=== PATIENT | female | born 1985 | race Caucasian/White ===

== ENCOUNTER 2020-12-24 00:21 | Day surgery (SDC) | payer OTHER, SELFPAY ==
[2020-12-16 12:45] VITALS: BMI 25.6
--- NOTE | 2020-12-23 14:50 | P.PNAN_ITS ---
Anes - Initial Pre Proc Eval Procedure: Operation Date: 12/24/20 13:30 Proposed Procedures p Bilateral Breast Augmentation Mammoplasty - Larry Loja MD Date/Time: 12/23/20 14:50 Surgeon: Larry Loja MD Pre Op Diagnosis: micromastia Patient Data Age: 35 Gender: F Height: 1.57 m Weight: 63.5 kg Allergies Allergy/AdvReac Type Severity Reaction Status Date / Time povidone-iodine Allergy Severe Rash Verified 12/25/20 10:42 [From Betadine] Home Medications Medication Instructions Recorded Confirmed Type aripiprazole 5 mg tablet 5 mg PO DAILY 11/20/20 12/24/20 History vortioxetine 5 mg tablet 20 mg PO DAILY 11/20/20 12/24/20 History zolpidem 5 mg tablet 5 mg PO QHS PRN 11/20/20 12/24/20 History Probiotic with Prebiotic 1 tablet PO DAILY 12/16/20 12/24/20 History Ubrelvy 50 mg PO ONCE PRN 12/16/20 12/24/20 History vitamin D79-[id number] acid 1 tablet PO DAILY 12/16/20 12/24/20 History docusate sodium 100 mg capsule 100 mg PO DAILY #14 cap 12/18/20 12/24/20 Rx ondansetron HCl 4 mg tablet 4 mg PO Q8H #21 tablet 12/18/20 12/24/20 Rx carisoprodol 350 mg tablet 350 mg PO TID PRN #21 tablet 12/19/20 12/24/20 Rx hydrocodone 5 mg-acetaminophen 325 1 tablet PO Q6H PRN #15 tablet 12/19/20 12/24/20 Rx mg tablet Patient hx anesthesia problems: none Family hx anesthesia problems: none Results Review: All pre-operative results and documents have been reviewed as part of the pre-operative evaluation. [facility] Past Medical History Medical History Anxiety Depression Migraine PTSD (post-traumatic stress disorder) Surgical History Surgical History History of appendectomy History of cholecystectomy Social History Social History Smoking status: Never smoker Tobacco type: cigarettes Alcohol intake: never Substance use: never Substance use type: does not use Additional living arrangements comments: WITH CHILDREN Spiritual care concerns: No Anes - Eval Final PreProcedure Day of Procedure 12/23/20 14:50 Patient weight: overweight Heart: regular rate and rhythm Lungs: clear to auscultation and normal air movement Airway: Mallampati scale class II Neurological: alert and oriented Last oral intake: >/= 8 hours ASA classification: II Emergent: no Anesthetic plan: proceed Anesthesia type and monitoring: general LMA and standard monitoring Results Review: All pre-operative results and documents have been reviewed as part of the pre-operative evaluation. Informed Consent: The patient's anesthetic plan and its attendant risks and benefits were discussed with the patient/family/POA. Questions were solicited and answers provided to the satisfaction of the patient/family/POA.
[2020-12-24] VITALS (9 sets, daily range): BP systolic 112–139; BP diastolic 68–83; PULSE 66–113; RESP 12–20; TEMP 37–37.1; O2SAT 96–100
[2020-12-24] MEDS: LACTATED RINGERS 1,000 ML 30 ML IV CONT ×2 (12:04→14:20)
--- NOTE | 2020-12-24 12:26 | WPDANESEPPF ---
Anes - Initial Pre Proc Eval Procedure: Operation Date: 12/24/20 13:30 Proposed Procedures p Bilateral Breast Augmentation Mammoplasty - Larry Loja MD Date/Time: 12/24/20 12:26 Surgeon: Larry Loja MD Pre Op Diagnosis: micromastia Patient Data Age: 35 Gender: F Height: 1.57 m Weight: 66.45 kg Last Vital Signs Temp 37.1 C 12/24/20 12:16 Pulse 66 12/24/20 12:16 Resp 16 12/24/20 12:16 BP 112/68 12/24/20 12:16 Pulse Ox 100 12/24/20 12:16 Allergies Allergy/AdvReac Type Severity Reaction Status Date / Time povidone-iodine Allergy Severe Rash Verified 12/24/20 12:12 [From Betadine] Home Medications Medication Instructions Recorded Confirmed Type aripiprazole 5 mg tablet 5 mg PO DAILY 11/20/20 12/24/20 History vortioxetine 5 mg tablet 20 mg PO DAILY 11/20/20 12/24/20 History zolpidem 5 mg tablet 5 mg PO QHS PRN 11/20/20 12/24/20 History Probiotic with Prebiotic 1 tablet PO DAILY 12/16/20 12/24/20 History ubrogepant [Ubrelvy] 50 mg PO ONCE PRN 12/16/20 12/24/20 History vitamin U76-[id number] acid 1 tablet PO DAILY 12/16/20 12/24/20 History docusate sodium 100 mg capsule 100 mg PO DAILY #14 cap 12/18/20 12/24/20 Rx ondansetron HCl 4 mg tablet 4 mg PO Q8H #21 tablet 12/18/20 12/24/20 Rx carisoprodol 350 mg tablet 350 mg PO TID PRN #21 tablet 12/19/20 12/24/20 Rx hydrocodone 5 mg-acetaminophen 325 1 tablet PO Q6H PRN #15 tablet 12/19/20 12/24/20 Rx mg tablet Laboratory Tests 12/24/20 11:47 Cotinine Pending Patient hx anesthesia problems: none Family hx anesthesia problems: none Results Review: All pre-operative results and documents have been reviewed as part of the pre-operative evaluation. [facility] Past Medical History Medical History Anxiety Depression Migraine PTSD (post-traumatic stress disorder) Surgical History Surgical History History of appendectomy History of cholecystectomy Social History Social History Smoking status: Never smoker Tobacco type: cigarettes Alcohol intake: never Substance use: never Substance use type: does not use Living arrangements: with family Additional living arrangements comments: WITH CHILDREN Spiritual care concerns: No Anes - Eval Final PreProcedure Day of Procedure 12/24/20 12:26 Patient weight: overweight Heart: regular rate and rhythm Lungs: clear to auscultation Airway: Mallampati scale class II Neurological: alert and oriented Last oral intake: >/= 8 hours ASA classification: III Emergent: no Anesthetic plan: proceed Anesthesia type and monitoring: general LMA and standard monitoring Results Review: All pre-operative results and documents have been reviewed as part of the pre-operative evaluation. Informed Consent: The patient's anesthetic plan and its attendant risks and benefits were discussed with the patient/family/POA. Questions were solicited and answers provided to the satisfaction of the patient/family/POA.
--- NOTE | 2020-12-24 12:30 | WPDHPUPDATE1 ---
History and Physical Update Update Date/Time: 12/24/20 12:30 History and Physical has been reviewed, including an updated exam of the patient. There are NO changes in the patient's condition. Risks, benefits, and alternatives have been discussed and questions answered. Patient agrees to proceed with procedure.
[2020-12-24] MEDS: SCOPOLAMINE 1.5 MG PATCH TRANSDERM (12:48)
--- NOTE | 2020-12-24 12:49 | P.OP_ITS ---
Procedure Note - Detailed Date of Procedure 12/24/20 Pre-op Diagnosis micromastia Post-op Diagnosis same Procedure Performed Bilateral Augmentation Mammaplasty Surgeon Larry Loja MD Anesthesia general Findings Bilateral Dual Plane Augmentation Mammaplasty Shiva Fields SoftTouch 405cc Right - REF#405 SN [id number] Left - REF#405 SN [id number] Description of Procedure She is here today for bilateral breast augmentation. Previously and again today the risks, benefits, alternatives were discussed in extensive detail. I wanted her to be very realistic about the risks involved as well as expectations. We discussed aftercare and what to monitor for. Made sure answered all of her questions to her satisfaction today and consent was obtained. Marked in the preoperative holding area with their verification. The patient was taken to the operating room placed supine on the operating table. Anesthesia was provided by anesthesiology. A surgical time-out was taken. We cleansed the skin and 1% lidocaine and 0.25% Marcaine with epinephrine was used anesthetize as a field block. She was prepped and draped in a standard sterile fashion. Tegaderm nipple Interiano were placed. A 15 blade used to make an incision along the inframammary fold. Dissection was continued at 45 degree angle until the chest wall as identified. I incised the pectoralis major along its inferior border and completely released the inferior border leaving the medial border intact. I created a subpectoral pocket in the appropriate dimensions based on our preoperative planning for the implant. I then copiously irrigated with saline solution and verified a strict hemost asis. Next the used Phase One solution to irrigate the pocket. I washed my gloves with the triple antibiotic and Betadine solution. We washed the implant immediately upon opening it with this solution and only opened it when we needed it. I used implant funnel and no-touch technique. The implant was introduced into the pocket using the funnel. Having verified positioning of the implant this was closed using 2-0 Vicryl followed by 3-0 Monocryl in a running subcuticular 4-0 Monocryl followed by tissue glue. Fluffs, Jay wrap, and surgical bra were placed. Patient was awoke and taken to PACU without difficulty. All instrument sponge counts were correct at the end of the case. Estimated Blood Loss 20 Drains No Packing No Pathology none sent Complications No immediate complications Condition stable Disposition PACU
[2020-12-24 12:57] LABS: Urine Cotinine NEGATIVE
[2020-12-24] MEDS: ceFAZolin 2 GM/D5W 50 ML 2 GM/50 ML BAG IVPB (13:12)
[2020-12-24] MEDS: LIDO 1%/EPINEPHRINE 1:100,000 50 ML VIAL 30 ML INFILTRATE (13:17)
[2020-12-24] MEDS: BUPIVACAINE HCL 0.25% PF 30 ML VIAL INFILTRATE (13:17)
[2020-12-24] MEDS: TRANEXAMIC ACID 1,000MG/ISO100 1,000 MG/100 ML BAG 200 MG IVPB (13:37)
--- NOTE | 2020-12-24 14:36 | SUR.OPER ---
implant irrigation solution: phase 1 hypochlorous acid solution
[2020-12-24] MEDS: fentaNYL CITRATE INJ (*CRX) 100 MCG/2 ML VIAL 25 MCG IV PUSH ×8 (14:39→15:18)
[2020-12-24] MEDS: oxyCODONE HCL (*CRX) 5 MG TAB IR PO (15:58)
--- NOTE | 2020-12-24 17:05 | SUR.PHASEII ---
1630 AWAITING RIDE. PT DRESSED.
== END 2020-12-24 17:20 | disposition home or self-care (01) ==
PROVIDERS: PCP Nurse Practitioner Family; Visit Provider Surgery Plastic and Reconstructive Surgery
PROC: (CPT 19325; principal; 2020-12-24 13:30)
DX: Z41.1 Encounter for cosmetic surgery (principal); N64.82 Hypoplasia of breast; F41.8 Other specified anxiety disorders; F43.10 Post-traumatic stress disorder, unspecified; Z79.899 Other long term (current) drug therapy
CPT/HCPCS: 19325; 80307; A9270; J0131; J0690; J2250; J3010; J7120